=== PATIENT | male | born 1975 | race Caucasian/White ===

== ENCOUNTER → 2016-09-01 | Outpatient (CLI) | payer BC ==
[2016-09-01 10:37] LABS: HEMATOCRIT 47.5 % (42.0-52.0); HEMOGLOBIN 16.3 g/dL (14.0-18.0)
== END ==
LOC: LAB 06:52
PROVIDERS: ATTEND Nurse Practitioner Family
DX: E83.119 Hemochromatosis, unspecified (principal)
CPT/HCPCS: 85014; 85018; 99195

== ENCOUNTER → 2016-09-08 | Outpatient (CLI) | payer BC ==
[2016-09-08 10:54] LABS: HEMOGLOBIN 15.1 g/dL (14.0-18.0)
== END ==
LOC: LAB 10:35
PROVIDERS: ATTEND Nurse Practitioner Family
DX: E83.119 Hemochromatosis, unspecified (principal)
CPT/HCPCS: 85014; 85018; 99195

== ENCOUNTER → 2016-09-16 | Outpatient (CLI) | payer BC ==
[2016-09-16 08:53] LABS: HEMATOCRIT 42.6 % (42.0-52.0); HEMOGLOBIN 14.4 g/dL (14.0-18.0)
== END ==
LOC: LAB 08:41
PROVIDERS: ATTEND Nurse Practitioner Family
DX: E83.119 Hemochromatosis, unspecified (principal)
CPT/HCPCS: 85014; 85018; 99195

== ENCOUNTER → 2016-09-22 | Outpatient (CLI) | payer BC ==
[2016-09-22 09:38] LABS: HEMATOCRIT 39.9 % (42.0-52.0); HEMOGLOBIN 13.8 g/dL (14.0-18.0)
== END ==
LOC: LAB 09:12
PROVIDERS: ATTEND Nurse Practitioner Family
DX: E83.119 Hemochromatosis, unspecified (principal)
CPT/HCPCS: 85014; 85018; 99195

== ENCOUNTER → 2016-10-14 | Outpatient (CLI) | payer BC ==
[2016-10-14 09:03] LABS: HEMATOCRIT 37.8 % (42.0-52.0); HEMOGLOBIN 12.5 g/dL (14.0-18.0)
== END ==
LOC: LAB 08:52
PROVIDERS: ATTEND Nurse Practitioner Family
DX: E83.119 Hemochromatosis, unspecified (principal)
CPT/HCPCS: 36415; 85014; 85018